=== PATIENT | male | born 1970 | race Caucasian/White ===

== ENCOUNTER 2016-11-15 07:01 | Inpatient (IN) | payer BC, OTHER ==
[~2016-11-15] VITALS: Ht 177.8 cm; Wt 94.8 kg
[2016-11-15] MEDS ORDERED: KETOROLAC 30 MG/ML VIAL. IV ONE (07:30)
[2016-11-15] MEDS ORDERED: fentaNYL PF 100 MCG/2 ML VIAL IV ONE (07:30)
[2016-11-15 07:52] LABS: BASO % 0 % (0-3); EOS # 0.3 x10^3/uL (0.0-0.7); EOS % 4 % (0-3); HEMATOCRIT 46.7 % (39.0-53.0); HEMOGLOBIN 16.2 g/dL (13.0-17.5); LYMPH # 3.6 x10^3/uL (1.0-4.8); LYMPH % 42 % (24-48); MEAN CORPUSCULAR HEMOGLOBIN 31 pg (25-35); MEAN CORPUSCULAR HGB CONC 35 g/dL (31-37); MEAN CORPUSCULAR VOLUME 90 fL (79-100); MONO # 0.9 x10^3/uL (0.0-1.1); MONO % 10 % (0-9); NEUT # 3.7 x10^3uL (1.8-7.7); NEUT % 44 % (31-73); PLATELET COUNT 251 x10^3/uL (140-400); RED BLOOD COUNT 5.22 x10^6/uL (4.30-5.70); RED CELL DISTRIBUTION WIDTH 13.3 % (11.5-14.5); WHITE BLOOD COUNT 8.5 x10^3/uL (4.0-11.0)
--- NOTE | 2016-11-15 07:57 | ED.ADGEN ---
Past History Past Medical History: No Pertinent History Past Surgical History: Other Alcohol Use: Occasionally Drug Use: None Adult General Chief Complaint Chief Complaint R Flank pain HPI HPI Patient is a 46-year-old male who presents with acute onset right lower flank pain, radiating to right lower quadrant proximally 45 minutes prior to ED arrival. Pain is described as severe, sharp, deep and constant. It is not worse with palpation or movement. Patient is unable to find position of comfort. Patient has history of prior back injury, but denies dislocation. Denies hematuria, urinary frequency urgency or hematuria. No history of kidney stones. No other acute symptoms or complaints. Review of Systems Review of Systems ROS as per HPI Current Medications Current Medications Current Medications Medications (Trade) Dose Ordered Sig/Fatimah Start Time Stop Time Status Last Admin Dose Admin Fentanyl Citrate (Fentanyl 2ml Vial) 50 mcg PRN Q1HR PRN 11/15/16 10:15 11/16/16 10:14 UNV Ketorolac Tromethamine (Toradol) 30 mg 1X ONCE 11/15/16 07:30 11/15/16 07:31 DC 11/15/16 07:25 30 MG Morphine Sulfate (Morphine 4mg Syringe) 4 mg 1X ONCE 11/15/16 09:00 11/15/16 09:01 DC 11/15/16 08:45 4 MG Ondansetron HCl (Zofran) 4 mg PRN Q4HRS PRN 11/15/16 10:15 11/16/16 10:14 UNV Promethazine HCl (Phenergan Im) 25 mg 1X ONCE 11/15/16 09:00 11/15/16 09:02 DC 11/15/16 09:00 25 MG Promethazine HCl (Phenergan) 25 mg STK-MED ONCE 11/15/16 08:58 11/15/16 08:59 DC Sodium Chloride 1,000 ml @ 125 mls/hr 1X ONCE 11/15/16 10:15 11/15/16 18:14 UNV Allergies Allergies Allergies Coded Allergies Type Severity Reaction Last Updated Verified Penicillins Allergy Unknown 11/15/16 Yes Physical Exam Physical Exam Constitutional: Well developed, well nourished, moderate distress secondary to pain. HENT: Normocephalic, atraumatic, bilateral external ears normal, oropharynx moist. Eyes: PERRLA, EOMI. Neck: Normal range of motion. Cardiovascular:Heart rate regular rhytthm. Lungs & Thorax: Bilateral breath sounds clear to auscultation. Abdomen: Bowel sounds normal, soft, lower quadrant pain, tenderness. Skin: Warm, dry. Back: No tenderness, no CVA tenderness. [] Extremities: No tenderness. Neurologic: Alert and oriented X 3, normal motor function, normal sensory function, no focal deficits noted. Psychologic: Affect normal, judgement normal, mood normal. Current Patient Data Vital Signs Vital Signs Date Time Temp Pulse Resp B/P (MAP) Pulse Ox O2 Delivery O2 Flow Rate FiO2 11/15/16 09:15 62 18 147/73 (97) 96 Room Air 11/15/16 07:10 97.9 Lab Results Laboratory Tests Test 11/15/16 07:25 11/15/16 07:50 White Blood Count 8.5 x10^3/uL (4.0-11.0) Red Blood Count 5.22 x10^6/uL (4.30-5.70) Hemoglobin 16.2 g/dL (13.0-17.5) Hematocrit 46.7 % (39.0-53.0) Mean Corpuscular Volume 90 fL (79-100) Mean Corpuscular Hemoglobin 31 pg (25-35) Mean Corpuscular Hemoglobin Concent 35 g/dL (31-37) Red Cell Distribution Width 13.3 % (11.5-14.5) Platelet Count 251 x10^3/uL (140-400) Neutrophils (%) (Auto) 44 % (31-73) Lymphocytes (%) (Auto) 42 % (24-48) Monocytes (%) (Auto) 10 % (0-9) H Eosinophils (%) (Auto) 4 % (0-3) H Basophils (%) (Auto) 0 % (0-3) Neutrophils # (Auto) 3.7 x10^3uL (1.8-7.7) Lymphocytes # (Auto) 3.6 x10^3/uL (1.0-4.8) Monocytes # (Auto) 0.9 x10^3/uL (0.0-1.1) Eosinophils # (Auto) 0.3 x10^3/uL (0.0-0.7) Basophils # (Auto) 0.0 x10^3/uL (0.0-0.2) Sodium Level 143 mmol/L (136-145) Potassium Level 3.7 mmol/L (3.5-5.1) Chloride Level 104 mmol/L (98-107) Carbon Dioxide Level 27 mmol/L (21-32) Anion Gap 12 (6-14) Blood Urea Nitrogen 16 mg/dL (8-26) Creatinine 1.3 mg/dL (0.7-1.3) Estimated GFR (Cockcroft-Gault) 59.7 BUN/Creatinine Ratio 12 (6-20) Glucose Level 119 mg/dL (70-99) H Calcium Level 9.1 mg/dL (8.5-10.1) Total Bilirubin 0.7 mg/dL (0.2-1.0) Aspartate Amino Transferase (AST) 15 U/L (15-37) Alanine Aminotransferase (ALT) 28 U/L (16-63) Alkaline Phosphatase 69 U/L (46-116) Total Protein 7.8 g/dL (6.4-8.2) Albumin 4.2 g/dL (3.4-5.0) Albumin/Globulin Ratio 1.2 (1.0-1.7) Urine Collection Type Unknown Urine Color Yellow Urine Clarity Clear Urine pH 7.5 Urine Specific Bledsoe 1.020 Urine Protein Trace (NEG-TRACE) Urine Glucose (UA) Neg mg/dL (NEG) Urine Ketones (Stick) Neg mg/dL (NEG) Urine Blood Neg (NEG) Urine Nitrite Neg (NEG) Urine Bilirubin Neg (NEG) Urine Urobilinogen Dipstick 1 mg/dL (0.2 mg/dL) Urine Leukocyte Esterase Neg (NEG) EKG EKG [] Radiology/Procedures Radiology/Procedures [CT abdomen pelvis: Small distal ureteral stone with mild ureteral obstruction] Course & Med Decision Making Course & Med Decision Making Pertinent Labs and Imaging studies reviewed. (See chart for details) [Intractable flank pain with small distal ureteral stone. Pain poorly controlled in the emergency department. Dr. Reyes to admit] Final Impression Final Impression [1. Intractable back pain 2. Nausea and vomiting ] Problems: Dragon Disclaimer Dragon Disclaimer This electronic medical record was generated, in whole or in part, using a voice recognition dictation system. CAYDEN WYATT DO November 15, 2016 07:57
[2016-11-15] MEDS ORDERED: ONDANSETRON PF 4 MG/2 ML VIAL. IV ONE (08:00)
--- NOTE | 2016-11-15 08:00 | RAD ---
CT of the abdomen and pelvis without contrast, 11/15/2016: History: Right back pain Noncontrast scans were obtained utilizing the renal stone protocol. There is minimal bilateral renal cortical scarring. No intrarenal calculi are identified. The left renal collecting system and ureter are normal. There is slight prominence of the right renal collecting system and right ureter. This is due to a 3 x 1.5 mm calculus in the distal right ureter located just superior to the level of the ureterovesical junction. The partially filled urinary bladder is unremarkable. The unopacified liver is unremarkable. No gallbladder abnormality is seen. The pancreas is unremarkable. The spleen is of normal size. The abdominal aorta is unremarkable. No abdominal or pelvic adenopathy is seen. The bowel loops are not dilated. No free fluid or free air is evident in the abdomen or pelvis. IMPRESSION: Small partially obstructing calculus in the distal right ureter. PQRS Compliance Statement: One or more of the following individualized dose reduction techniques were utilized for this examination: 1. Automated exposure control 2. Adjustment of the mA and/or kV according to patient size 3. Use of iterative reconstruction technique
[2016-11-15 08:06] LABS: ALBUMIN 4.2 g/dL (3.4-5.0); ALBUMIN/GLOBULIN RATIO 1.2 (1.0-1.7); CALCIUM 9.1 mg/dL (8.5-10.1); CREATININE 1.3 mg/dL (0.7-1.3); GFR 59.7; POTASSIUM 3.7 mmol/L (3.5-5.1); TOTAL BILIRUBIN 0.7 mg/dL (0.2-1.0); TOTAL PROTEIN 7.8 g/dL (6.4-8.2)
[2016-11-15 08:12] LABS: BILIRUBIN,URINE NEG (NEG); CLARITY,URINE CLEAR; COLOR,URINE YELLOW; GLUCOSE,URINE NEG (NEG); NITRITE,URINE NEG (NEG); UROBILINOGEN,URINE 1 mg/dL (0.2 mg/dL)
[2016-11-15] MEDS ORDERED: IV NORMAL SALINE 1,000ML 1,000 ML IV ONE ×2 (08:15→10:15)
[2016-11-15] MEDS ORDERED: PROMETHAZINE 25 MG/ML VIAL IV ONE (08:58)
[2016-11-15] MEDS ORDERED: MORPHINE SULFATE 4 MG/ML DISP.SYRIN. IV ONE (09:00)
[2016-11-15] MEDS ORDERED: PROMETHAZINE IM 25 MG/ML VIAL IM ONE (09:00)
[2016-11-15] MEDS ORDERED: ONDANSETRON PF 4 MG/2 ML VIAL. IV PRN (10:15)
[2016-11-15] MEDS ORDERED: TAMSULOSIN 0.4 MG CAP.ER.24H. PO ONE (10:30)
[2016-11-15 11:03] VITALS: BP 142/89
[2016-11-15] MEDS: fentaNYL PF 100 MCG/2 ML VIAL IV PRN ×3 (11:55→20:12)
--- NOTE | 2016-11-15 14:33 | HP ---
ADMIT DATE: 11/15/2016 REASON FOR ADMISSION: Right flank pain. HISTORY OF PRESENT ILLNESS: This is a 46-year-old gentleman who was walking towards work when he developed severe pain in his right flank like he was being stabbed. It was constant and had never had this pain before, so came to the Emergency Room. CAT scan shows a 3 mm stone and so was admitted. PAST MEDICAL HISTORY: He has history of a back injury which he had 3 weeks ago with a bulging disk, which is on the left side, which is actually getting better. He had panic attacks in the past. Has had hypertension in the past. He is not on medications. MEDICATIONS: None. ALLERGIES: PENICILLIN. FAMILY HISTORY: Negative for kidney stones. SOCIAL HISTORY: Does not smoke, works at a body shop, and occasional alcohol. Is . REVIEW OF SYSTEMS: Negative for kidney stones in the past. Negative for hematuria. Negative for flank pain. Negative for dysuria or urgency. Other remainder of review of systems also negative. OBJECTIVE: VITAL SIGNS: Blood pressure 142/89, pulse 94, respirations 20, pulse ox 98% on room air. HEENT: His hearing is normal. His pupils are equal, round, react to light. Extraocular muscles are intact. His nose was patent. His throat was clear, tongue was moist. NECK: Supple. LUNGS: Clear. CARDIOVASCULAR: Regular rhythm and rate. Borderline tachycardic. ABDOMEN: Soft, nontender. There is no suprapubic tenderness or right groin tenderness. However, the patient just received pain medication. Negative for right flank pain. EXTREMITIES: Without edema. LABORATORY DATA: Normal white count, hemoglobin 16.2, hematocrit 46.7. Chemistry normal. Urinalysis is negative for hematuria or infection. Abdominal pelvic CT, he does have a partially obstructing 3 x 1.5 calculus in the distal right ureter at the level of the ureterovesicular junction. ASSESSMENT: Nephrolithiasis. PLAN: IV fluids, pain medication, strain all urine. ROSIE ANAYA DO DR: KARYN/renny JOB#: [id number] / [id number]
[2016-11-15] MEDS: KETOROLAC 30 MG/ML VIAL. IV PRN (15:22)
[2016-11-15] MEDS: MVI, ADULT NO.4 WITH VIT K 10 ML, FOLIC ACID 1 MG, THIAMINE 100 MG in IV DEXTROSE 5 %-0... IV SCH ×4 (15:22)
--- NOTE | 2016-11-15 16:24 | ACF ---
Admission Criteria Forms BACK PAIN Clinical Indications for Admission to Inpatient Care (Place 'X' for any and all applicable criteria): Admission is indicated for ANY ONE of the following (1)(2)(3)(4)(5)(6): [X]I. Inpatient admission required rather than observation care (Also use Back Pain: Observation Care as appropriate) because of ANY ONE of the following [X]a) Severe pain requiring acute inpatient management [ ]b) Immediate inpatient surgery [ ]c) Other condition, treatment or monitoring requiring inpatient admission [ ]II. Spine fracture with significant damage or threat of damage to vertebral column or spinal cord [ ]III. Progressive or severe neurologic deficit [ ]IV. Suspected spinal infection (e.g., epidural abscess, vertebral osteomyelitis)(10) [ ]V. Suspected cause requires inpatient treatment (eg, aortic dissection) [ ]. Cauda equina syndrome as indicated by ANY ONE of the following (9): [ ]a) Bowel dysfunction [ ]b) Bladder dysfunction [ ]c) Saddle anesthesia [ ]d) Neurologic abnormality suggesting cauda equina impingement Extended stay beyond goal length of stay may be needed for (3)(25): [ ]a) Spinal cord compression from stenosis, disk, or tumor (8)(9) [ ]b) Traumatic or pathologic vertebral fracture (33) [ ]c) Vertebral infection(10) [ ]d) Severe pain that is difficult to control [ ]e) Older patients(65 years or older) The original [facility] content created by [employer] has been revised. The portions of the content which have been revised are identified through the use of italic text or in bold, and [facility] has neither reviewed nor approved the modified material. All other unmodified content is copyright [employer]. Please see references footnoted in the original [employer] [facility] edition 2016 Admission Criteria Met?: Yes TAMMIE CALVILLO November 15, 2016 16:24
[2016-11-15 19:36] VITALS: BP 157/95
[2016-11-15] MEDS: IV NORMAL SALINE 1,000ML 1,000 ML IV SCH (20:31)
[2016-11-15] MEDS: PROMETHAZINE 12.5 MG in IV NORMAL SALINE 50ML 50 ML IV PRN (20:50)
[2016-11-15 22:56] VITALS: BP 148/83
[2016-11-16] MEDS: PROMETHAZINE 12.5 MG in IV NORMAL SALINE 50ML 50 ML IV PRN (02:55)
[2016-11-16] MEDS: IV NORMAL SALINE 1,000ML 1,000 ML IV SCH (04:53)
[2016-11-16] MEDS: KETOROLAC 30 MG/ML VIAL. IV PRN (04:55)
[2016-11-16 05:27] VITALS: BP 137/82
[2016-11-16 07:15] LABS: BASO % 0 % (0-3); EOS # 0.2 x10^3/uL (0.0-0.7); EOS % 2 % (0-3); HEMATOCRIT 41.7 % (39.0-53.0); HEMOGLOBIN 14.1 g/dL (13.0-17.5); LYMPH # 1.9 x10^3/uL (1.0-4.8); LYMPH % 19 % (24-48); MEAN CORPUSCULAR HEMOGLOBIN 30 pg (25-35); MEAN CORPUSCULAR HGB CONC 34 g/dL (31-37); MEAN CORPUSCULAR VOLUME 90 fL (79-100); MONO # 1.3 x10^3/uL (0.0-1.1); MONO % 13 % (0-9); NEUT # 6.8 x10^3uL (1.8-7.7); NEUT % 67 % (31-73); PLATELET COUNT 180 x10^3/uL (140-400); RED BLOOD COUNT 4.64 x10^6/uL (4.30-5.70); RED CELL DISTRIBUTION WIDTH 13.1 % (11.5-14.5); WHITE BLOOD COUNT 10.2 x10^3/uL (4.0-11.0)
[2016-11-16 07:17] LABS: CALCIUM 8.1 mg/dL (8.5-10.1); CREATININE 1.7 mg/dL (0.7-1.3); GFR 43.8; POTASSIUM 4.2 mmol/L (3.5-5.1)
[2016-11-16] MEDS ORDERED: ALPRAZolam 0.5 MG TABLET PO ONE (08:15)
[2016-11-16] MEDS: MVI, ADULT NO.4 WITH VIT K 10 ML, FOLIC ACID 1 MG, THIAMINE 100 MG in IV DEXTROSE 5 %-0... IV SCH ×4 (08:55)
[2016-11-16] MEDS ORDERED: TAMSULOSIN 0.4 MG CAP.ER.24H. PO SCH (09:00)
--- NOTE | 2016-11-16 09:36 | RAD ---
Indication: Low back pain. History of kidney stone. Technique: KUB contains 2 images. Comparison is a CT from one day earlier. Findings: Punctate calculus in the right hemipelvis may correspond to the stone noted on recent CT. Positioning is not appreciably changed. No additional calculus along the expected course of either ureter is apparent. Bowel gas pattern is nonobstructive. Impression: Punctate calculus within the right hemipelvis could represent ureteral stone noted on recent CT.
[2016-11-16 11:28] VITALS: BP 137/79
--- NOTE | 2016-11-16 12:28 | DS ---
DATE OF DISCHARGE: 11/15/2016 DISCHARGE/TRANSFER SUMMARY DISPOSITION: To [facility] on 11/16/2016. REASON FOR DISPOSITION: Transfer her to Urology for care not available at [facility]. DISCHARGE DIAGNOSES: 1. Right nephrolithiasis partially obstructing - did not pass. 2. Acute kidney injury, . 3. Panic attack. 4. Pain management. HOSPITAL COURSE: A 46-year-old male who was admitted with acute onset of right flank pain found to have a 3 x 1.5 mm calculus in the distal right ureter just superior to the ureterovesical junction. He was treated aggressively with IV fluids and did not pass the stone. He had a lot of difficulties with the pain medication and nausea and it was noted on the following morning of 11/16/2016 that his creatinine had gone up to 1.7 in spite of aggressive IV fluids. KUB indicated that the stone had not moved. In consult with Dr. Julio Cesar Case, Urology and he recommended transfer to [place] for definitive care should he not passed the stone. Dr. Smyth has accepted. OBJECTIVE: VITAL SIGNS: Blood pressure 137/79, pulse 78, respirations 20, pulse ox is 95% on room air and temperature is 97.9. GENERAL: The patient is calm and cooperative. NECK: Supple. HEENT: His tongue was moist. LUNGS: Clear. CARDIOVASCULAR: Regular rhythm and rate. ABDOMEN: Soft, nontender. Bowel sounds are positive at the time he has been treated for pain, not have the groin pain. EXTREMITIES: Without edema. DISPOSITION: To [place]. ROSIE ANAYA DO DR: KARYN/renny JOB#: [id number] / [id number] MOE Burch MD
== END 2016-11-16 12:30 | disposition short-term general hospital (02) | DRG 694 ==
LOC: ER 07:01 → 1 SOUTH 10:11 → OBSVTOIN 15:08
PROVIDERS: ADMIT Family Medicine; ATTEND Family Medicine
DX: N20.2 Calculus of kidney with calculus of ureter (principal); N17.9 Acute kidney failure, unspecified; I10 Essential (primary) hypertension; R11.2 Nausea with vomiting, unspecified; F41.0 Panic disorder [episodic paroxysmal anxiety]; Z88.0 Allergy status to penicillin
CPT/HCPCS: 36415; 74000; 74176; 80048; 80053; 81003; 85027; 96361; 96372; 96374; 96375; 99285; G0378; G0379; J1885; J2270; J2405; J2550; J3010; 96365; 96366; 96367; 96376; J7030